=== PATIENT | female | born 1975 | race Caucasian/White ===

== ENCOUNTER → 2016-08-22 | Outpatient (CLI) | payer BC ==
[~2016-08-22] MED LIST: BUPR-51 PO; CALC-727 PO; CHOL200024 PO; CYCL-375 PO; FERR325C PO; HYDR-4246 PO; MINO50TA PO; NAPR500T PO
== END ==
LOC: WC.BC 09:13
DX: Z12.31 Encounter for screening mammogram for malignant neoplasm of breast (principal)
CPT/HCPCS: 77063; G0202